=== PATIENT | female | born 1965 | race Caucasian/White ===

== ENCOUNTER → 2023-09-20 | Outpatient (CLI) | payer OTHER ==
[2023-09-20 13:00] VITALS: BP 133/88; PULSE 109; RESP 17
--- NOTE | 2023-09-20 15:05 | P.PAINPG ---
Objective - Vital Signs Vital signs: Vital Signs Temp Pulse 109 H 09/20/23 12:49 Resp 17 09/20/23 12:49 BP 133/88 09/20/23 12:49 Pulse Ox 98 09/20/23 12:49 FiO2 PQRS Measure Charge Sheet Mode of Arrival: Ambulatory Comment: HISTORY OF PRESENT ILLNESS: A 58 yr old female w daughter at side as a referral from Shirley Reese [facility] presents today w severe and chronic LBP > 6 mo secondary to DDD, spondylosis and facet arthropathy without myelopathy for evaluation. Pt states pain level is provoked at 7 /10 in intensity, constant, localized in the lower lumbar spine, predominantly axial, sharp in character w occasional shooting pain & tingling towards the LEs and feet. Pain is provoked by over activity. Pain is alleviated by chiropractic treatments x 6 visits which ended in Aug 2023, physician guided home stretches every other day since Aug 2023, heat, ice, medications (Tyl, Ibu), topical CBD oil, repositioning and rest . [place], nor does she have the means to be transported to a PT facility. Oswestry axial pain score at 25. PMH: OA, ADD/ ADHD, GERD, Vitamin D Deficiency PSH: R Hip Replacement (2021), Abd Liposuction, Appendectomy, Breast Implants, Multiple Teeth Extractions SH: Daily tobacco use, Occasional ETOH use, Hx of Polysubstance abuse FH: Mo- / Breast CA. Fa- DM All: See list Meds: See list REVIEW OF ORGAN SYSTEMS: CONSTITUTIONAL: No fevers or chills. No recent weight loss. NEUROLOGICAL: + numbness and tingling along the distal extremities. No seizure disorders or headaches. MUSCULOSKELETAL: + pain PSYCHIATRIC: Denies current depression or suicidal thoughts. Physical Examinations : Constitutional : Cooperative , not in acute distress . Neurologic : Cranial nerve II to XII intact. No focal neurological deficits. Psychiatric : alert & oriented x 3. Matching mood & appropriate affect. Judgment & insight intact. Musculoskeletal : Cervical Spine Motor strength in the deltoid and biceps: Normal right side. Normal Left side Motor strength biceps and the wrist extensors: Normal right side . Normal left side Motor strength in the triceps muscle: Normal right side. Normal left side Deep tendon reflexes: Normal at the biceps. Normal at Brachioradialis. Normal at triceps Vertebral body tenderness to deep palpation over Cervical facet loading test: positive bilaterally Spurling test: positive bilaterally Neck distraction test: positive bilaterally Aditya sign: positive bilaterally Lumbar spine Motor strength lower extremities ,thigh and legs 5/5 Right side , 5/5 Left side Deep tendon reflexes : Normal Knee Jerk. Normal Ankle Jerk Vertebral body tenderness over L5 Sandoval Test positive BL L5-S1 Lumbar facet Loading Test: positive Right / positive Left Range of motion of the lumbar spine Flexion 30 degrees, extension 10 degrees Straight Leg Raise test: Left/ Right positive at degrees Mary Jane test: positive right / positive left. Severe tenderness over the Sacroiliac joint on the Right / Left sides Gaenslen test: positive bilaterally Seated flexion test: positive bilaterally. Sacral spine : Severe tenderness over the Sacroiliac joint: right side / left side Range of motion: Flexion of the lumbar spine <60 degrees Range of motion: Extension of the lumbar spine <20 degrees Gaenslen's Test positive Mary Jane test: positive right side / left side Thigh Thrust Test Sacral Thrust Test Imaging: CT noncontrast lumbar spine from 08/16/2023 reviewed Assessment/ Plan : L4-L5/ L5-S1 mild disc bulges Recommendation of DARRELL L5-S1 #1 and physician guided home exercise documentation provided. Risks, benefits of procedure discussed and patient verbalized understanding. Admits to anti- coagulant use or medical history of diabetes. Protocol for discontinuation/ continuation of medications eder procedure discussed. Recommendation of medication management. Neurontin 100mg #90 w 1 RF. Directions to titrate upward. Use, side effects, adverse reactions, safe storage discussed. All questions answered. I have spent greater than 30 minutes on patient care today. Dr Garza was available by phone for the evaluation of this patient. The time was used to review the medical records including relevant urine studies and Prescription history (MAPs), review of the available imaging, evaluation and examination of the patient, coordination of care with the medical staff and if applicable refer ring physicians, as well as creation of the medical record - Pain Location Lower Back Non-Pharmacological Interventions: Heat, Ice Pharmacological Interventions: PRN Medication, Topical Medication PQRS Narrative: Blood Pressure 133/88 Pain Intensity [Lower Back] 7 Scale Used Numeric (1 - 10) Hx Alcohol Use (MH) No Home Medications: Ambulatory Orders Gabapentin [Neurontin] 100 mg PO TID 30 Days #90 cap 07/25/24 Controlled Substance Measures - Controlled Substance Measures Is patient prescribed a controlled substance at discharge?: No
== END ==
LOC: PNWHC3 12:35
PROVIDERS: ATTEND Specialist
DX: M51.27 Other intervertebral disc displacement, lumbosacral region (principal); M51.37 Other intervertebral disc degeneration, lumbosacral region; M25.519 Pain in unspecified shoulder; M54.2 Cervicalgia
CPT/HCPCS: 99202

== ENCOUNTER 2023-10-04 08:30 | Day surgery (SDC) | payer OTHER ==
[~2023-10-04 08:30] MED LIST: ALPRAZolam 0.5 MG TAB ONE
[2023-10-04] MEDS ORDERED: methylPREDNISolone ACETATE 80 MG/ML 1 ML VIAL ONE (08:44)
[2023-10-04] MEDS ORDERED: IOPAMIDOL M200 10 ML VIAL ONE (08:44)
--- NOTE | 2023-11-27 18:19 | FL ---
EXAMINATION TYPE: FL guided pain mgmt statistic DATE OF EXAM: 10/25/2023 9:02 AM COMPARISON: Pre Operative Images if available both CT/MRI or plain film CLINICAL INDICATION: Female, 58 years old with history of LUMBAR DDD PAIN SERVICES; TECHNIQUE: FL guided pain mgmt statistic, multiple fluoroscopic images provided for procedure. Total fluoroscopy time: 1 seconds Total submitted images to PACS: 1 DAP: 0.008 mGym2 Gycm2 uGym2 cGycm2 or equivalent. FINDINGS: Fluoroscopic images during injection for pain management demonstrate multilevel degeneration changes throughout the spine. No evidence for fracture. No acute process identified. IMPRESSION: 1. No evidence for intraoperative complication. 2. Please see the operative/procedural note for further details. [facility], , 11/27/2023 6:17 PM
== END 2023-10-04 09:18 ==
LOC: ORPAIN 08:30
PROVIDERS: ATTEND Anesthesiology
DX: M51.36 Other intervertebral disc degeneration, lumbar region (principal); M47.816 Spondylosis without myelopathy or radiculopathy, lumbar region; Z88.8 Allergy status to other drugs, medicaments and biological substances
CPT/HCPCS: 62323

== ENCOUNTER → 2023-11-07 | Outpatient (CLI) | payer OTHER ==
[2023-11-07 11:48] VITALS: BP 120/45; PULSE 80; RESP 16
--- NOTE | 2023-11-14 11:31 | P.PAINPG ---
PQRS Measure Charge Sheet Comment: HISTORY OF PRESENT ILLNESS: A 58 yr old female w daughter at side presents today w severe and chronic LBP > 6 mo secondary to DDD, spondylosis and facet arthropathy without myelopathy for evaluation s/p DARRELL L5-S1 #1. Pt states she experienced 60 % pain relief x 5 wks s/p procedure. Pt states pain level is provoked at 7 /10 in intensity, constant, localized in the lower lumbar spine, predominantly axial, sharp in character w occasional shooting pain & tingling towards the LEs and feet. Pain is provoked by over activity. Pain is alleviated by chiropractic treatments x 6 visits which ended in Aug 2023, physician guided home stretches every other day since Aug 2023, heat, ice, medications , topical, use of a cane for ambulatory assistance, repositioning and rest . [place] come to [place], nor does she have the means to be transported to a PT facility. Interventional procedures include DARRELL L5-S1 x1 Medications include Tyl, Ibu, topical CBD oil Hx of Polysubstance abuse REVIEW OF ORGAN SYSTEMS: CONSTITUTIONAL: No fevers or chills. No recent weight loss. NEUROLOGICAL: + numbness and tingling along the distal extremities. No seizure disorders or headaches. MUSCULOSKELETAL: + pain PSYCHIATRIC: Denies current depression or suicidal thoughts. Physical Examinations : Constitutional : Cooperative , not in acute distress . Neurologic : Cranial nerve II to XII intact. No focal neurological deficits. Psychiatric : alert & oriented x 3. Matching mood & appropriate affect. Judgment & insight intact. Musculoskeletal : Cervical Spine Motor strength in the deltoid and biceps: Normal right side. Normal Left side Motor strength biceps and the wrist extensors: Normal right side . Normal left side Motor strength in the triceps muscle: Normal right side. Normal left side Deep tendon reflexes: Normal at the biceps. Normal at Brachioradialis. Normal at triceps Vertebral body tenderness to deep palpation over Cervical facet loading test: positive bilaterally Spurling test: positive bilaterally Neck distraction test: positive bilaterally Aditya sign: positive bilaterally Lumbar spine Motor strength lower extremities ,thigh and legs 5/5 Right side , 5/5 Left side Deep tendon reflexes : Normal Knee J erk. Normal Ankle Jerk Vertebral body tenderness over L5 Sandoval Test positive BL L5-S1 Lumbar facet Loading Test: positive Right / positive Left Range of motion of the lumbar spine Flexion 30 degrees, extension 10 degrees Straight Leg Raise test: Left/ Right positive at degrees Mary Jane test: positive right / positive left. Severe tenderness over the Sacroiliac joint on the Right / Left sides Gaenslen test: positive bilaterally Seated flexion test: positive bilaterally. Sacral spine : Severe tenderness over the Sacroiliac joint: right side / left side Range of motion: Flexion of the lumbar spine <60 degrees Range of motion: Extension of the lumbar spine <20 degrees Gaenslen's Test positive Mary Jane test: positive right side / left side Thigh Thrust Test Sacral Thrust Test Imaging: CT noncontrast lumbar spine from 08/16/2023 reviewed Assessment/ Plan : L4-L5/ L5-S1 mild disc bulges Recommendation of DARRELL L5-S1 #2. Risks, benefits of procedure discussed and patient verbalized understanding. Admits to anti- coagulant use or medical history of diabetes. Protocol for discontinuation/ continuation of medications eder procedure discussed. Recommendation of medication management. Incr Neurontin 300mg #60 w 1 RF and added Zanaflex 4mg #90 w 1 RF. Use, side effects, adverse reactions, safe storage discussed. All questions answered. I have spent greater than 30 minutes on patient care today. Dr Garza was available by phone for the evaluation of this patient. The time was used to review the medical records including relevant urine studies and Prescription history (MAPs), review of the available imaging, evaluation and examination of the patient, coordination of care with the medical staff and if applicable referring physicians, as well as creation of the medical record PQRS Narrative: Hx Alcohol Use (MH) No Home Medications: Ambulatory Orders Gabapentin [Neurontin] 300 mg PO BID 30 Days #60 cap 11/07/23 tiZANidine HCL [Zanaflex] 4 mg PO TID PRN 30 Days #90 capsule 11/07/23 Controlled Substance Measures - Controlled Substance Measures Is patient prescribed a controlled substance at discharge?: No
== END ==
LOC: PNWHC3 10:24
PROVIDERS: ATTEND Specialist
DX: M54.16 Radiculopathy, lumbar region (principal)
CPT/HCPCS: 99211

== ENCOUNTER → 2023-11-26 | Outpatient (CLI) | payer OTHER ==
[2023-11-26 14:19] VITALS: BP 130/82; PULSE 82; RESP 16; TEMP 96.8
--- NOTE | 2023-11-26 15:28 | P.PAINPG ---
Objective - Vital Signs Vital signs: Intake & Output 11/25/23 11/26/23 11/26/23 18:59 06:59 18:59 Weight 56.699 kg PQRS Measure Charge Sheet Comment: HISTORY OF PRESENT ILLNESS: A 58 yr old female w daughter at side presents today w severe and chronic LBP > 6 mo secondary to radiculopathy, spondylosis and facet arthropathy without myelopathy for evaluation . Pt states pain level is provoked at 7 /10 in intensity, constant, localized in the lower lumbar spine, predominantly axial, sharp in character w occasional shooting pain & tingling towards the LEs and feet. Pain is provoked by over activity. Pain is alleviated by chiropractic treatments x 6 visits which ended in Aug 2023, physician guided home stretches every other day since Aug 2023, heat, ice, medications , topical, use of a cane for ambulatory assistance, repositioning and rest . [place] PT [place] come to [place], nor does she have the means to be transported to a PT facility. She did not have the LESI as she stated she just had a AK and has been pr escribed Brillinta twice daily and cannot be off of the medication for 6 months. Also stated her Neurontin was increased to TID by a oceanic sciences professor while hospitalized for a AK but it is still not treating pain. Pt wanted narcotic pain medication and was advised we will not prescribe such medication. Discussed with Dr Garza that pt is not a narcotic candidate, nor a methadone patient through this facility. Pt's pharmacy on file was called whom stated they have no Brillinta on file and that Neurontin is still 600mg 1/2 tab PO BID, which is also unchanged from her prior visit at this clinic. Upon returning to exam room to relay the inconsistencies in the information they shared with what is on file with the pharmacy, pt and her daughter left AMA. Interventional procedures include DARRELL L5-S1 x1 Medications include Tyl, Ibu, topical CBD oil Hx of Polysubstance abuse REVIEW OF ORGAN SYSTEMS: CONSTITUTIONAL: No fevers or chills. No recent weight loss. NEUROLOGICAL: + numbness and tingling along the distal extremities. No seizure disorders or headaches. MUSCULOSKELETAL: + pain PSYCHIATRIC: Denies current depression or suicidal thoughts. Physical Examinations : Constitutional : Cooperative , not in acute distress . Neurologic : Cranial nerve II to XII intact. No focal neurological deficits. Psychiatric : alert & oriented x 3. Matching mood & appropriate affect. Judgment & insight intact. Musculoskeletal : Cervical Spine Motor strength in the deltoid and biceps: Normal right side. Normal Left side Motor strength biceps and the wrist extensors: Normal right side . Normal left side Motor strength in the triceps muscle: Normal right side. Normal left side Deep tendon reflexes: Normal at the biceps. Normal at Brachioradialis. Normal at triceps Vertebral body tenderness to deep palpation over Cervical facet loading test: positive bilaterally Spurling test: positive bilaterally Neck distraction test: positive bilaterally Aditya sign: positive bilaterally Lumbar spine Motor strength lower extremities ,thigh and legs 5/5 Right side , 5/5 Left side Deep tendon reflexes : Normal Knee Jerk. Normal Ankle Jerk Vertebral body tenderness over L5 Sandoval Test positive BL L5-S1 Lumbar facet Loading Test: positive Right / positive Left Range of motion of the lumbar spine Flexion 30 degrees, extension 10 degrees Straight Leg Raise test: Left/ Right positive at degrees Mary Jane test: positive right / positive left. Severe tenderness over the Sacroiliac joint on the Right / Left sides Gaenslen test: positive bilaterally Seated flexion test: positive bilaterally. Sacral spine : Severe tenderness over the Sacroiliac joint: right side / left side Range of motion: Flexion of the lumbar spine <60 degrees Range of motion: Extension of the lumbar spine <20 degrees Gaenslen's Test positive Mary Jane test: positive right side / left side Thigh Thrust Test Sacral Thrust Test Imaging: CT noncontrast lumbar spine from 08/16/2023 reviewed Assessment/ Plan : L4-L5/ L5-S1 mild disc bulges Pt and daughter left exam room before completion of exam. Discharge letter completed. Neurontin 300mg #60 w 1 RF and Zanaflex 4mg #90 w 1 RF. Use, side effects, adverse reactions, safe storage discussed. All questions answered. I have spent greater than 30 minutes on patient care today. Dr Garza was available by phone for the evaluation of this patient. The time was used to review the medical records including relevant urine studies and Prescription history (MAPs), review of the available imaging, evaluation and examination of the patient, coordination of care with the medical staff and if applicable referring physicians, as well as creation of the medical record - Pain Location Bilateral Lower Back Non-Pharmacological Interventions: Chiropractic Treatment, Heat, Inactivity, Physical Therapy, Position/Reposition Pharmacological Interventions: PRN Medication, Topical Medication PQRS Narrative: Hx Alcohol Use (MH) No Home Medications: Ambulatory Orders Gabapentin 300 mg PO BID 30 Days #60 tab 11/21/23 Aspirin EC [Ecotrin Low Dose] 81 mg PO DAILY 11/26/23 Cholecalciferol (Vitamin D3) [Vitamin D3 (125 MCG = 5,000 IU)] 125 mcg PO DAILY 11/26/23 Cyanocobalamin [Vitamin B-12] 500 mcg PO DAILY 11/26/23 Ferrous Sulfate [Iron] 325 mg PO 11/26/23 Magnesium Oxide [Mag-Ox] 400 mg PO DAILY 11/26/23 Metoprolol Tartrate [Lopressor] 12.5 mg PO BID 11/26/23 Vit No.179/Iron/Folic [ Tablet] 1 each PO 11/26/23 Rosuvastatin [Crestor] 20 mg PO 11/26/23 Ticagrelor [Brilinta] 90 mg PO BID 11/26/23 Zinc Gluconate [Zinc] 50 mg PO DAILY 11/26/23 tiZANidine [Zanaflex] 4 mg PO Q8HR PRN 30 Days #90 tab 11/26/23 Controlled Substance Measures - Controlled Substance Measures Is patient prescribed a controlled substance at discharge?: No
== END ==
LOC: PNWHC3 13:36
PROVIDERS: ATTEND Specialist
DX: M54.16 Radiculopathy, lumbar region
CPT/HCPCS: 99211